=== PATIENT | female | born 1955 | race Caucasian/White ===

== ENCOUNTER 2017-01-22 05:53 | Emergency (ER) | payer BC, OTHER ==
--- NOTE | 2017-01-22 06:28 | Emergency Department Record ---
History of Present Illness - General Chief Complaint: Abdominal Pain Stated Complaint: ABD PAIN/PANCREATITIS Time Seen by Provider: 01/22/17 06:20 Source: Patient Mode of Arrival: Ambulatory Limitations: No limitations - History of Present Illness Initial Comments: 61 yo female presents to ED with a CC of abdominal pain, nausea, and vomiting that began last night. Patient reports "I think I having a gallbladder attack" . Patient reports similar symptoms previously related to her gallbladder, has not seen a surgeon for her symptoms. Patient denies fevers, chills, or change in stools. Patient denies previous abdominal surgery. Patient does report a history of DM and HTN. MD Complaint: Abdominal pain Onset/Timin -: Hour(s) Location: Diffuse, Periumbilical Radiation: Epigastric, Suprapubic Migration to: Epigastric, Suprapubic Severity: Moderate Quality: Cramping Consistency: Constant Improves With: Nothing Worsens With: Nothing Associated Symptoms: Denies other symptoms - Related Data Patient : No Home Medications Medication Instructions Recorded Confirmed Last Taken Atenolol/Chlorthalidone 1 tab PO DAILY 01/22/17 01/22/17 01/21/17 [Atenolol-Chlorthalidone 50-25] Captopril [Captopril] 12.5 mg PO DAILY 01/22/17 01/22/17 01/21/17 Citalopram Hydrobromide [Celexa] 40 mg PO QHS 01/22/17 01/22/17 01/21/17 Levothyroxine Sodium [Synthroid] 50 mcg PO QAM 01/22/17 01/22/17 01/21/17 Metformin HCl 500 mg PO DAILY 01/22/17 01/22/17 01/21/17 Potassium Chloride [Klor-Con M20] 20 meq PO DAILY 01/22/17 01/22/17 01/21/17 Pravastatin Sodium [Pravachol] 40 mg PO QHS 01/22/17 01/22/17 01/21/17 Previous Rx's Medication Instructions Recorded Hyoscyamine Sulfate [Levsin-Sl] 0.25 mg SL Q8H PRN #20 tab.subl 01/22/17 Ondansetron [Zofran Odt] 4 mg PO Q6H PRN #20 tab.rapdis 01/22/17 Allergies Allergy/AdvReac Type Severity Reaction Status Date / Time Penicillins Allergy RASH Verified 01/22/17 05:58 Travel Screening - Travel/Exposure Within Last 30 Days Have you traveled within the last 30 days?: No - Travel Symptoms Symptom Screening: Vomiting, Stomach Pain Review of Systems Constitutional: Denies: Chills, Fever, Malaise, Night sweats Eyes: Denies: Eye discharge, Eye pain ENT: Denies: Congestion, Ear pain, Epistaxis Respiratory: Denies: Cough, Dyspnea Cardiovascular: Denies: Chest pain, Dyspnea on exertion Endocrine: Denies: Fatigue, Heat or cold intolerance Gastrointestinal: Reports: Abdominal pain, Nausea, Vomiting. Denies: Constipation Genitourinary: Denies: Incontinence, Retention Musculoskeletal: Denies: Arthralgia, Back pain, Gout, Joint swelling Skin: Denies: Bruising, Change in color Neurological: Denies: Abnormal gait, Confusion, Headache, Tingling Psychiatric: Denies: Anxiety Hematological/Lymphatic: Denies: Anemia, Blood Clots Past Medical History - SOCIAL HISTORY Smoking Status: Never smoker Alcohol Use: Occasional Drug Use: None - RESPIRATORY Hx Respiratory Disorders: No - CARDIOVASCULAR Hx Cardio Disorders: Yes Hx Hypertension: Yes Comment:: hyperlipidemia - NEURO Hx Neuro Disorders: No - GI Hx GI Disorders: No - Hx Genitourinary Disorders: No - ENDOCRINE Hx Endocrine Disorders: Yes Hx Diabetes: Yes (DM II) Hx Thyroid Disease: Yes - MUSCULOSKELETAL Hx Musculoskeletal Disorders: No - PSYCH Hx Psych Problems: Yes Hx Anxiety: Yes - HEMATOLOGY/ONCOLOGY Hx Hematology/Oncology Disorders: No Family Medical History Any Significant Family History?: Yes Hx Cancer: Father Hx Diabetes: Father, Mother Hx Heart Disease: Mother *Heart Comment: CHF Hx Stroke: Mother Physical Exam - General General Appearance: Alert, Oriented x3, Cooperative, Mild distress Limitations: No limitations - Head Head exam: Atraumatic, Normocephalic, Normal inspection Head exam detail: negative: Abrasion, Contusion, Kennedy's sign, General tenderness, Hematoma, Laceration - Eye Eye exam: Normal appearance. negative: Conjunctival injection, Periorbital swelling, Periorbital tenderness, Scleral icterus - ENT Ear exam: negative: Auricular hematoma, Auricular trauma Nasal Exam: negative: Active bleeding, Discharge, Dried blood, Foreign body Mouth exam: negative: Drooling, Laceration, Muffled voice, Tongue elevation - Neck Neck exam: Normal inspection. negative: Meningismus, Tenderness - Respiratory Respiratory exam: Normal lung sounds bilaterally. negative: Respiratory distress, Rhonchi, Stridor, Wheezes - Cardiovascular Cardiovascular Exam: Regular rate, Normal rhythm, Normal heart sounds - GI/Abdominal GI/Abdominal exam: Soft, Tenderness (TTP RUQ, epigastric region on examination) . negative: Pulsatile mass, Rebound, Rigid - Rectal Rectal exam: Deferred - exam: Deferred - Extremities Extremities exam: negative: Pedal edema, Tenderness - Back Back exam: Denies: CVA tenderness (R), CVA tenderness (L) - Neurological Neurological exam: Alert, Oriented X3 - Psychiatric Psychiatric exam: Normal affect, Normal mood - Skin Skin exam: Normal color. negative: Abrasion Type of lesion: negative: abrasion Course Vital Signs 01/22/17 05:59 Temperature 97.6 F Pulse Rate [ 58 L Pulse Ox Probe] Respiratory 20 Rate Blood Pressure 153/85 [Left Arm] Pulse Ox 99 - Reevaluation(s) Reevaluation #1: 01/22/17 06:45 Labs reviewed, WBC 9.6 with 88% neutrophils. Glucose 236. Labs are otherwise grossly unremarkable for an acute process. Reevaluation #2: 01/22/17 07:49 Ct Abdomen and Pelvis: Fluid-filled loops of bowel without evidence of obstruction c/w enteritis, sludge in the gallbladder without evidence of cholelithiasis, diverticulosis without diverticulitis Patient reassessed and updated on all results, reports that she is feeling much better. Patient appears stable for discharge at this time. Medical Decision Making - Lab Data Result diagrams: 01/22/17 06:10 01/22/17 06:10 Disposition Disposition: Discharge Clinical Impression: Abdominal pain Qualifiers: Abdominal location: generalized Qualified Code(s): R10.84 - Generalized abdominal pain Disposition: Home, Self-Care Condition: (2) Stable Instructions: Abdominal Pain (ED) Additional Instructions: Return to ED if your symptoms worsen or if you have any concerns. Zofran and Levsin as directed. Follow-up with your family doctor in 1-3 days as directed. Prescriptions: Hyoscyamine Sulfate [Levsin-Sl] 0.25 mg SL Q8H PRN #20 tab.subl PRN Reason: Abdominal Pain Ondansetron [Zofran Odt] 4 mg PO Q6H PRN #20 tab.rapdis PRN Reason: Nausea/Vomiting Forms: Patient Portal Access Time of Disposition: 07:57 Quality - Quality Measures Quality Measures: N/A - Blood Pressure Screening Blood Pressure Classification: Pre-Hypertensive BP Reading Systolic Measurement: 158 Diastolic Measurement: 83 Screening for High Blood Pressure: < First Hypertensive BP, F/U Documented > [ [id number]] First Hypertensive Follow-up Interventions: Referral to alternative/primary care provider.
[2017-01-22 06:29] LABS: HEMOGLOBIN 14.4 gm/dl (11.6-16.0); MEAN CELL VOLUME 92.9 fl (81-97); MEAN CORPUSCULAR HEMOGLOBIN 31.9 pg (27-33); MEAN CORPUSCULAR HGB CONC 34.3 g/dl (32-36); MEAN PLATELET VOLUME 12.1 fl (7.4-10.4); PLATELET COUNT 219 K/uL (130-400); RED BLOOD COUNT 4.52 M/uL (3.80-5.40); RED CELL DISTRIBUTION WIDTH 12.6 % (11.5-14.5); WHITE BLOOD COUNT W/O DIFF 9.6 K/uL (4.2-12.2)
[2017-01-22] MEDS: 0.9 % SODIUM CHLORIDE 1000ML 1,000 ML IV SCH (06:30)
[2017-01-22] MEDS: ONDANSETRON HCL IV 4 MG/2 ML VIAL IVP ONE (06:30)
[2017-01-22 06:39] LABS: PLATELET ESTIMATE NORMAL (NORMAL)
[2017-01-22 06:40] LABS: ALB/GLOB RATIO 1.3 (1.1-1.8); ALBUMIN 4.3 gm/dL (3.5-5.0); ALKALINE PHOSPHATASE 98 U/L (38-126); ALT/SGPT 54 U/L (9-52); ANION GAP 12.1 (7-16); AST/SGOT 33 U/L (14-36); BILIRUBIN,TOTAL 1.32 mg/dL (0.2-1.3); BLOOD UREA NITROGEN 19 mg/dL (7-17); CARBON DIOXIDE 26.9 mmol/L (22-30); CREATININE 0.7 mg/dL (0.52-1.04); EST GLOMERULAR FILTRATION RATE > 60 ml/min; GLUCOSE,RANDOM 236 mg/dL (70-110); LIPASE 91 U/L (23-300); TOTAL PROTEIN 7.5 gm/dL (6.3-8.2)
[2017-01-22] MEDS: MORPHINE SULFATE 5 MG/ML PFS IVP ONE (06:49)
--- NOTE | 2017-01-24 15:18 | CT SCAN REPORT ---
EXAM: CT OF THE ABDOMEN AND PELVIS WITH CONTRAST HISTORY: MIDLINE ABDOMINAL PAIN. TECHNIQUE: Contrast enhanced helical CT examination of the abdomen and pelvis was performed including delayed images through the kidneys with 100 ml of Omnipaque 300 utilized. Comparison: None. FINDINGS: There is mild dependent atelectasis in each lung base. A subpleural nodule is present within the lateral segment of the right middle lobe measuring 3 mm. In the absence of a known malignant primary tumor and absence of a smoking history, this is likely post inflammatory and no follow-up is necessary. Otherwise, CT chest examination in twelve months would be recommended. The heart is not grossly enlarged. A small sliding type hiatal hernia is possible. There is mild diffuse decreased density of the liver relative to the spleen consistent with mild steatosis. No suspicious focal hepatic lesion is identified. The spleen, pancreas, and right adrenal gland are normal in appearance. There is minimal nodularity of the left adrenal gland measuring 9 mm. This is nonspecific though statistically is likely an adenoma. The kidneys are normal in appearance. There is mild increased density within the gallbladder neck consistent with sludge or tiny gallstones. No gallbladder wall thickening or pericholecystic fluid is, however, seen. No biliary ductal dilatation is identified. No intraabdominal nor retroperitoneal lymphadenopathy noted. The vasculature is normal in appearance. No pelvic mass, lymphadenopathy, or free pelvic fluid is seen. The uterus is in the midline. There are a couple contiguous contour deforming isodense masses questioned arising from the left uterine fundus measuring approximately 12 mm and 14 mm respectively. These are nonspecific, but likely uterine fibroids. If clinically warranted, they could be further evaluated with pelvic ultrasound. The ovaries are not enlarged. No intrinsic urinary bladder abnormality is seen. There is mild diverticulosis of the left colon without evidence of diverticulitis. The appendix is visualized and normal in appearance. There are several gas and fluid distended mid small bowel loops present, a couple of which are borderline dilated. There is, however, no sharp zone of transition to normal caliber identified. There does appear to be a small amount of solid stool more distally in the small bowel suggesting stasis. No free intraperitoneal air nor evidence of abscess. No suspicious lytic or blastic bone lesion. There are degenerative changes scattered within the visualized spine most pronounced at the L4-L5 level where the degenerative disk/end plate changes are moderate to severe. IMPRESSION: 1. THERE ARE SEVERAL GAS AND FLUID DISTENDED LOOPS OF MID SMALL BOWEL WITHIN THE MID ABDOMEN, A COUPLE OF WHICH ARE BORDERLINE DILATED THOUGH NO SHARP ZONE OF TRANSITION IS SEEN AND THERE IS APPARENT SOLID STOOL MORE DISTALLY. THESE FINDINGS MAY RELATE TO STASIS/ILEUS. ENTERITIS COULD ALSO HAVE THIS APPEARANCE. THERE IS, HOWEVER, NO BOWEL WALL THICKENING OR EXTRALUMINAL AIR. 2. OCCASIONAL DIVERTICULA IN THE LEFT COLON WITHOUT EVIDENCE OF DIVERTICULITIS. 3. THERE ARE A COUPLE ISODENSE MASSES IN THE UTERINE FUNDUS, SMALL IN SIZE. THESE ARE NONSPECIFIC, BUT LIKELY FIBROIDS. 4. POSSIBLE SMALL HIATAL HERNIA. 5. 3 MM NONCALCIFIED NODULE IN THE RIGHT LUNG BASE. 6. SMALL AMOUNT OF SLUDGE VERSUS TINY GALLSTONES IN THE DEPENDENT GALLBLADDER NECK WITHOUT GALLBLADDER WALL THICKENING OR PERICHOLECYSTIC FLUID. JOB NUMBER: [id number] AND [id number] [facility]
== END 2017-01-22 08:13 | disposition home or self-care (01) ==
LOC: ER 05:53
DX: R10.84 Generalized abdominal pain (principal); R11.2 Nausea with vomiting, unspecified
CPT/HCPCS: 99284 ×2; 96374; 96375; 83690; 80053; 85027; 74177; Q9967; J2405; J2270; J7030